=== PATIENT | male | born 1990 | race Caucasian/White ===

== ENCOUNTER → 2021-12-03 | Outpatient (CLI) | payer BC ==
[2021-12-03 11:31] LABS: HEMATOCRIT 46.6 % (42.0-52.0); HEMOGLOBIN 15.5 gm/dL (14.0-18.0); MCH 29.9 pg (26.0-34.0); MCHC 33.2 g/dL (28.0-37.0); MCV 90.1 fL (80.0-100.0); RBC 5.17 mil/uL (4.50-6.00); RDW 13.3 % (10.5-14.5)
[2021-12-03 11:33] LABS: URINE BILIRUBIN NEGATIVE (Negative); URINE BLOOD NEGATIVE (Negative); URINE CLARITY CLEAR; URINE COLOR YELLOW; URINE GLUCOSE-RANDOM* NEGATIVE (Negative); URINE KETONES NEGATIVE (Negative); URINE LEUKOCYTES-REFLEX NEGATIVE (Negative); URINE NITRITE-REFLEX NEGATIVE (Negative); URINE PROTEIN (DIPSTICK) NEGATIVE (Negative); URINE UROBILINOGEN 0.2 E.U./dl (0.2-1.0)
[2021-12-03 11:47] LABS: ALBUMIN 4.7 g/dL (3.4-5.0); CALCIUM 9.6 mg/dL (8.5-10.1); POTASSIUM 4.4 mmol/L (3.5-5.1)
[2021-12-03 11:49] LABS: INR 1.1; PROTIME 11.9 Seconds (10.5-12.1)
--- NOTE | 2021-12-04 07:32 | EKG ---
[place] [address] [address] [place] [address] ELECTROCARDIOGRAM REPORT Name: DESHAWN SCOTT Room #: LIZETTE Wray#: [id number] Admission: 12/03/21 Attend Phys: Mekhi Velazquez MD Discharge: Date of : [birth year] Report #: [id number] [facility] Test Date: 2021-12-03 Test Time: 11:35:54 Pat Name: DESHAWN CSOTT Department: Room: Gender: [place] Attendant: MEERA : 1990 Requested By: Mekhi Velazquez Order Number: [id number] MD: Brendan Escobar Measurements Intervals [place] Rate: 59 P: 37 ND: 171 QRS: 23 QRSD: 92 T: 49 QT: 391 QTc: 388 Interpretive Statements Sinus bradycardia ST elev, probable normal early repol pattern No previous ECG available for comparison Electronically Signed On 12-04-2021 7:32:37 [employer] by Brendan Escobar [email or web address] <ELECTRONICALLY SIGNED> By: Brendan Escobar MD, [facility] 12/04/21 0732 1135 [id number] Brendan Escobar MD, FACC /EPI
== END ==
LOC: PAC 10:43
PROVIDERS: ATTEND Orthopaedic Surgery
DX: R00.1 Bradycardia, unspecified (principal); M17.11 Unilateral primary osteoarthritis, right knee